=== PATIENT | female | born 1970 | race Caucasian/White ===

== ENCOUNTER 2017-06-19 18:45 | Emergency (ER) | payer OTHER ==
[2017-06-19 20:49] VITALS: BP 138/89
== END 2017-06-19 20:51 | disposition home or self-care (01) ==
LOC: ED 18:45
DX: M25.521 Pain in right elbow (principal); I10 Essential (primary) hypertension; G89.29 Other chronic pain; M54.9 Dorsalgia, unspecified
CPT/HCPCS: J1885; Q0092

== ENCOUNTER 2017-07-01 11:58 | Emergency (ER) | payer OTHER ==
[~2017-07-01] VITALS: Ht 167.6 cm; Wt 176.4 kg
[2017-07-01 13:14] LABS: BASOPHIL % 0.4 % (0-2); PLATELET COUNT 335 x10^3mcL (130-400); RED CELL DISTRIBUTION WIDTH 14.3 % (11.5-14.5)
[2017-07-01 13:26] LABS: CALCIUM 9.2 mg/dL (8.5-10.1); CARBON DIOXIDE 28.3 mmol/L (21-32); CHLORIDE SERUM 99 mmol/L (98-107); CREATININE SERUM 0.9 mg/dL (0.6-1.0); GFR1 > 60 mL/min; GLUCOSE SERUM 106 mg/dL (74-106); POTASSIUM SERUM 3.8 mmol/L (3.5-5.1); SODIUM SERUM 136 mmol/L (136-145)
[2017-07-01 13:32] LABS: ALBUMIN 3.3 g/dL (3.4-5.0); ALKALINE PHOSPHATASE 93 U/L (46-116); ALT/SGPT 29 U/L (14-59); AST/SGOT 18 U/L (15-37); BILIRUBIN TOTAL 0.75 mg/dL (0.20-1.00); TOTAL PROTEIN, SERUM 8.5 g/dL (6.4-8.2)
[2017-07-01 14:02] VITALS: BP 142/84
== END 2017-07-01 14:02 | disposition home or self-care (01) ==
LOC: ED 11:58
PROVIDERS: Emergency Medicine
DX: L03.116 Cellulitis of left lower limb (principal); E11.9 Type 2 diabetes mellitus without complications; I10 Essential (primary) hypertension
CPT/HCPCS: 36415; J0295; J1885

== ENCOUNTER 2018-04-05 15:23 | Emergency (ER) | payer OTHER ==
[~2018-04-05] VITALS: Ht 167.6 cm; Wt 188.2 kg
[2018-04-05 15:34] VITALS: BP 153/99; Ht 167.6 cm; Wt 188.2 kg
== END 2018-04-05 18:05 | disposition home or self-care (01) ==
LOC: ED 15:23
DX: G43.909 Migraine, unspecified, not intractable, without status migrainosus (principal); H81.10 Benign paroxysmal vertigo, unspecified ear; I10 Essential (primary) hypertension
CPT/HCPCS: J1885; J2765; J8597

== ENCOUNTER 2018-09-02 14:53 | Emergency (ER) | payer OTHER ==
[~2018-09-02] VITALS: Ht 167.6 cm; Wt 184.7 kg
[2018-09-02 15:27] LABS: BASOPHIL % 0.3 % (0-2); PLATELET COUNT 383 x10^3mcL (130-400); RED CELL DISTRIBUTION WIDTH 14.3 % (11.5-14.5)
[2018-09-02 15:43] LABS: CARBON DIOXIDE 30.2 mmol/L (21-32); CHLORIDE SERUM 101 mmol/L (98-107); GFR1 > 60 mL/min; GLUCOSE SERUM 120 mg/dL (74-106); SODIUM SERUM 138 mmol/L (136-145)
[2018-09-02 15:49] LABS: ALBUMIN 3.6 g/dL (3.4-5.0); ALKALINE PHOSPHATASE 100 U/L (46-116); ALT/SGPT 40 U/L (14-59); AST/SGOT 26 U/L (15-37); BILIRUBIN TOTAL 0.59 mg/dL (0.20-1.00); TOTAL PROTEIN, SERUM 8.3 g/dL (6.4-8.2)
[2018-09-02 17:44] VITALS: BP 139/74
== END 2018-09-02 17:44 | disposition home or self-care (01) ==
LOC: ED 14:53
PROVIDERS: Emergency Medicine
DX: G44.209 Tension-type headache, unspecified, not intractable (principal); F41.9 Anxiety disorder, unspecified; I10 Essential (primary) hypertension; E11.9 Type 2 diabetes mellitus without complications; G89.29 Other chronic pain
CPT/HCPCS: J1885; J2270; J2405; Q0092

== ENCOUNTER 2018-10-17 21:20 | Emergency (ER) | payer OTHER ==
[~2018-10-17] VITALS: Ht 167.6 cm; Wt 187.8 kg
[2018-10-17 21:32] VITALS: Ht 167.6 cm; Wt 187.8 kg
[2018-10-17 23:10] VITALS: BP 151/92
== END 2018-10-17 23:10 | disposition home or self-care (01) ==
LOC: ED 21:20
DX: K08.89 Other specified disorders of teeth and supporting structures (principal); G89.29 Other chronic pain; M54.9 Dorsalgia, unspecified; I10 Essential (primary) hypertension; E11.9 Type 2 diabetes mellitus without complications
CPT/HCPCS: J1885; J2001

== ENCOUNTER 2018-10-19 14:04 | Emergency (ER) | payer OTHER ==
[~2018-10-19] VITALS: Ht 167.6 cm; Wt 189.2 kg
[2018-10-19 14:05] VITALS: Ht 167.6 cm; Wt 189.2 kg
[2018-10-19 16:36] VITALS: BP 189/100
== END 2018-10-19 16:36 | disposition home or self-care (01) ==
LOC: ED 14:04
DX: K08.89 Other specified disorders of teeth and supporting structures (principal); G89.29 Other chronic pain; M54.9 Dorsalgia, unspecified; I10 Essential (primary) hypertension; E11.9 Type 2 diabetes mellitus without complications
CPT/HCPCS: J0696; J3010; J3490

== ENCOUNTER 2018-12-27 15:27 | Emergency (ER) | payer OTHER ==
[~2018-12-27] VITALS: Ht 167.6 cm; Wt 186.0 kg
[2018-12-27 15:37] VITALS: Ht 167.6 cm; Wt 186.0 kg
[2018-12-27 19:42] VITALS: BP 172/89
== END 2018-12-27 19:42 | disposition home or self-care (01) ==
LOC: ED 15:27
DX: M54.2 Cervicalgia (principal); G43.909 Migraine, unspecified, not intractable, without status migrainosus; I10 Essential (primary) hypertension; E11.9 Type 2 diabetes mellitus without complications; E66.01 Morbid (severe) obesity due to excess calories; G89.29 Other chronic pain; M54.9 Dorsalgia, unspecified; Z68.44 Body mass index [BMI] 60.0-69.9, adult; Z98.890 Other specified postprocedural states
CPT/HCPCS: 82962; J1100; J1885

== ENCOUNTER 2019-08-25 10:59 | Emergency (ER) | payer OTHER ==
[~2019-08-25] VITALS: Ht 167.6 cm; Wt 191.0 kg
[2019-08-25 11:02] VITALS: Ht 167.6 cm; Wt 191.0 kg
[2019-08-25 11:47] VITALS: BP 197/85
== END 2019-08-25 12:47 | disposition home or self-care (01) ==
LOC: ED 10:59
DX: M72.2 Plantar fascial fibromatosis (principal); M77.9 Enthesopathy, unspecified; I10 Essential (primary) hypertension; E11.9 Type 2 diabetes mellitus without complications; G89.29 Other chronic pain; Z98.890 Other specified postprocedural states
CPT/HCPCS: Q0092

== ENCOUNTER 2019-10-15 13:24 | Emergency (ER) | payer OTHER ==
[~2019-10-15] VITALS: Ht 167.6 cm; Wt 183.7 kg
[2019-10-15 13:33] VITALS: Ht 167.6 cm; Wt 183.7 kg
[2019-10-15 14:05] LABS: RED CELL DISTRIBUTION WIDTH 14.4 % (11.5-14.5)
[2019-10-15 14:12] LABS: CALCIUM 9.6 mg/dL (8.5-10.1); CARBON DIOXIDE 32.2 mmol/L (21-32); CHLORIDE SERUM 93 mmol/L (98-107); GFR1 > 60 mL/min; GLUCOSE SERUM 141 mg/dL (74-106); PLATELET COUNT 428 x10^3mcL (130-400); POTASSIUM SERUM 3.9 mmol/L (3.5-5.1); SODIUM SERUM 131 mmol/L (136-145)
[2019-10-15 14:17] LABS: ALBUMIN 3.8 g/dL (3.4-5.0); ALKALINE PHOSPHATASE 84 U/L (46-116); ALT/SGPT 38 U/L (14-59); AST/SGOT 21 U/L (15-37); BILIRUBIN TOTAL 0.8 mg/dL (0.20-1.00); LIPASE 237 IU/L (73-393)
[2019-10-15 14:18] LABS: TOTAL PROTEIN, SERUM 8.4 g/dL (6.4-8.2)
[2019-10-15 15:30] LABS: microscopic required? NO
[2019-10-15 15:36] LABS: UA SPECIFIC GRAVITY >=1.030 (1.005-1.035); urine erythrocyte NEGATIVE (NEGATIVE)
[2019-10-15 15:46] LABS: AMPHETAMINE QUAL UR NONE DETECTED (See below)
[2019-10-15 15:58] LABS: CHOLESTEROL 181 mg/dL (<200); HDL CHOLESTEROL 55 mg/dL (40-60)
[2019-10-15 17:16] VITALS: BP 165/98
== END 2019-10-15 17:16 | disposition home or self-care (01) ==
LOC: ED 13:24
PROVIDERS: Emergency Medicine
DX: R11.2 Nausea with vomiting, unspecified (principal); R10.9 Unspecified abdominal pain; E11.9 Type 2 diabetes mellitus without complications; I10 Essential (primary) hypertension; E66.01 Morbid (severe) obesity due to excess calories; G89.29 Other chronic pain; M54.9 Dorsalgia, unspecified; Z68.44 Body mass index [BMI] 60.0-69.9, adult; Z98.890 Other specified postprocedural states
CPT/HCPCS: J1885; J3490; J7030; Q0092

== ENCOUNTER 2020-05-17 15:19 | Emergency (ER) | payer MEDICAID ==
[~2020-05-17] VITALS: Ht 167.6 cm; Wt 192.8 kg
[2020-05-17 15:35] VITALS: Ht 167.6 cm; Wt 192.8 kg
[2020-05-17 17:17] VITALS: BP 189/88
== END 2020-05-17 17:17 | disposition home or self-care (01) ==
LOC: ED 15:19
DX: M72.2 Plantar fascial fibromatosis (principal); M77.31 Calcaneal spur, right foot; I10 Essential (primary) hypertension; E11.9 Type 2 diabetes mellitus without complications; G89.29 Other chronic pain; Z98.890 Other specified postprocedural states
CPT/HCPCS: J1885

== ENCOUNTER 2020-06-28 21:33 | Emergency (ER) | payer MEDICAID, SELFPAY ==
[~2020-06-28] VITALS: Ht 167.6 cm; Wt 180.1 kg
[2020-06-28 21:36] VITALS: Ht 167.6 cm; Wt 180.1 kg
[2020-06-28 23:28] LABS: CALCIUM 8.8 mg/dL (8.5-10.1); CARBON DIOXIDE 28.9 mmol/L (21-32); CHLORIDE SERUM 98 mmol/L (98-107); GFR1 > 60 mL/min; GLUCOSE SERUM 120 mg/dL (74-106); POTASSIUM SERUM 3.7 mmol/L (3.5-5.1); SODIUM SERUM 133 mmol/L (136-145)
[2020-06-28 23:32] LABS: ALKALINE PHOSPHATASE 120 U/L (46-116); ALT/SGPT 38 U/L (14-59); AST/SGOT 27 U/L (15-37); BILIRUBIN TOTAL 0.5 mg/dL (0.20-1.00); LIPASE 100 IU/L (73-393); TOTAL PROTEIN, SERUM 7.2 g/dL (6.4-8.2)
[2020-06-28 23:34] LABS: ALBUMIN 2.9 g/dL (3.4-5.0)
[2020-06-28 23:35] LABS: BASOPHIL % 0.2 % (0-2); PLATELET COUNT 323 x10^3mcL (130-400); RED CELL DISTRIBUTION WIDTH 14.5 % (11.5-14.5)
[2020-06-29 01:40] VITALS: BP 130/71
== END 2020-06-29 01:40 | disposition home or self-care (01) ==
LOC: ED 21:33
PROVIDERS: Emergency Medicine
DX: K52.9 Noninfective gastroenteritis and colitis, unspecified (principal); I10 Essential (primary) hypertension; E11.9 Type 2 diabetes mellitus without complications; G89.29 Other chronic pain; M54.9 Dorsalgia, unspecified; Z20.828 Contact with and (suspected) exposure to other viral communicable diseases; Z98.890 Other specified postprocedural states
CPT/HCPCS: 82962; J1885; J2405; J7030; U0003-CS